=== PATIENT | female | born 1955 | race Caucasian/White ===

== ENCOUNTER → 2016-11-10 | Outpatient (CLI) | payer MEDICARE, MEDICAID ==
[2016-11-10 16:39] LABS: INR - (THERAPEUTIC) 1.1 (0.9-1.1); PROTIME 11.9 SECONDS (9.6-11.1)
== END | disposition disaster alternative care site (69) ==
LOC: LGSMG 16:24
PROVIDERS: Internal Medicine Adolescent Medicine
DX: B18.2 Chronic viral hepatitis C (principal)

== ENCOUNTER → 2016-12-03 | Outpatient (CLI) | payer MEDICARE, MEDICAID ==
[2016-12-03 14:02] LABS: CREATININE 0.7 mg/dL (0.5-1.1)
[2016-12-03 14:03] LABS: ESTIMATED GFR (MDRD EQUATION) > 60
== END | disposition disaster alternative care site (69) ==
LOC: GRAD 13:00 → GLAB 13:00 → GRAD 13:17
PROVIDERS: Registered Nurse
DX: B19.20 Unspecified viral hepatitis C without hepatic coma (principal); R77.2 Abnormality of alphafetoprotein; K76.89 Other specified diseases of liver
CPT/HCPCS: Q9967

== ENCOUNTER → 2016-12-07 | Outpatient (CLI) | payer MEDICARE, MEDICAID | END | disposition disaster alternative care site (69) | LOC: GRAD 15:50 | DX: Z03.89 Encounter for observation for other suspected diseases and conditions ruled out (principal); K74.60 Unspecified cirrhosis of liver | CPT/HCPCS: A9577 ==

== ENCOUNTER → 2017-01-13 | Outpatient (CLI) | payer MEDICARE, MEDICAID ==
--- NOTE | ~2017-01-13 | PUL ---
PATIENT'S NAME: ANTHONY OBRIEN [facility] AGE: 61 Y [address] 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 The flow volume curve revealed some airflow limitation at low lung volumes. After bronchodilator administration FVC decreased to 2.14 liters and FEV1 increased to 1.61 liters which is a 2% increase. FEV1/FVC was 75%. PHYSICIAN INTERPRETATION: The patient has no airflow limitation as per ATS/ERS criteria. There is no bronchodilator response. VERA LEMA MD [id number]/ks /[id number] dtt: 01/18/17 1612 , VERA LEMA dtd: 01/18/17 1332
== END | disposition disaster alternative care site (69) ==
LOC: GRTH 14:46
DX: J45.909 Unspecified asthma, uncomplicated (principal)

== ENCOUNTER → 2017-03-19 | Outpatient (CLI) | payer MEDICARE, MEDICAID | END | disposition disaster alternative care site (69) | LOC: GRAD 10:08 | DX: K76.9 Liver disease, unspecified (principal); K74.60 Unspecified cirrhosis of liver ==